=== PATIENT | male | born 1980 | race Caucasian/White ===

== ENCOUNTER 2020-08-15 09:27 | Emergency (ER) | payer SELFPAY ==
[2020-08-15] MEDS ORDERED: HYDROcodone/Acetaminophen 10/325 mg Tablet ONE (10:06)
[2020-08-15] MEDS ORDERED: Ketorolac Tromethamine 30 MG/ML VIAL ONE (10:06)
[2020-08-15] MEDS ORDERED: Acetaminophen 325 MG TAB ONE (10:06)
== END 2020-08-15 14:02 | disposition home or self-care (01) ==
LOC: ERS 09:27
DX: S32.038A Other fracture of third lumbar vertebra, initial encounter for closed fracture (principal); Z79.899 Other long term (current) drug therapy; W19.XXXA Unspecified fall, initial encounter
CPT/HCPCS: 96374; J1885